=== PATIENT | female | born 1950 | race Caucasian/White ===

== ENCOUNTER → 2017-12-24 | Outpatient (CLI) | payer MEDICARE, BC ==
--- NOTE | 2017-12-24 10:23 | US ---
EXAMINATION TYPE: US abdomen complete DATE OF EXAM: 12/24/2017 COMPARISON: NONE CLINICAL HISTORY: RT Upper Quad Pain R10.11. Pt states chest pain, pt states known "sluggish" gallbla dder EXAM MEASUREMENTS: Liver Length: 16.8 cm Gallbladder Wall: 0.2 cm CBD: 0.5 cm Spleen: 11.2 cm Right Kidney: 9.5 x 3.4 x 4.3 cm Left Kidney: 9.5 x 4.9 x 4.3 cm Larger pt body habitus Pancreas: wnl, tail obscured by overlying bowel gas Liver: Unremarkable hepatic echotexture. There is appropriate visualization of the portal triads and right hemidiaphragm. Gallbladder: wnl Evidence for sonographic Thurman's sign: No CBD: wnl Spleen: wnl Right Kidney: wnl, lower pole gassed out Left Kidney: wnl, lower pole gassed out Upper IVC: wnl Abd Aorta: wnl The liver is homogenous. The intrahepatic portion of the IVC and proximal abdominal aorta are within normal limits. There is no evidence of cholelithiasis. Common bile duct is unremarkable. The visu alized portions of the pancreas are homogenous. The spleen is unremarkable. Kidneys are symmetric a nd free of hydronephrosis. No renal lesions are seen. IMPRESSION: No sonographic evidence of cholelithiasis or acute cholecystitis. Given the patient's sym ptoms HIDA scan with CCK could be performed to evaluate for biliary dyskinesia or chronic cholecystit is.
== END | disposition home or self-care (01) ==
LOC: RADUSWWP 08:12
PROVIDERS: ATTEND Internal Medicine
DX: R10.11 Right upper quadrant pain (principal)
CPT/HCPCS: 76700

== ENCOUNTER → 2018-01-08 | Outpatient (CLI) | payer MEDICARE, BC ==
--- NOTE | 2018-01-08 15:41 | NM ---
Nuclear medicine hepatobiliary scan. HISTORY: Pain. DOSAGE: The patient received 8 ounces and sure plus and 5 mCi of Technetium 99m Choletec. FINDINGS: There is normal hepatic extraction. The gallbladder is seen by 55 minutes. There is bilia ry to bowel clearance by 20 minutes. Ejection fraction is 83%. IMPRESSION: 1. Ejection fraction of 83%. The gallbladder is somewhat delayed in appearance at 60 minutes which ca n be seen with cholecystitis correlate clinically.
== END | disposition home or self-care (01) ==
LOC: RADNMMAIN 12:47
PROVIDERS: ATTEND Internal Medicine
DX: R10.11 Right upper quadrant pain (principal)
CPT/HCPCS: 78226; A9537

== ENCOUNTER → 2025-02-10 | Outpatient (CLI) | payer MEDICARE, BC ==
--- NOTE | 2025-02-13 20:41 | MR ---
EXAMINATION TYPE: MR knee LT wo con DATE OF EXAM: 02/10/2025 9:11 PM COMPARISON: 02/05/2025.. CLINICAL INDICATION: Female, 74 years old with history of M25.562; PHH, left knee pain TECHNIQUE: Multi planar, multi sequence imaging was performed of the knee including: Triplane proton density fat-saturated images and T1-weighted imaging. No Gadolinium was given. IV Contrast: mL (none if empty) FINDINGS: Medial meniscus: Intact no displaced tear. Medial femorotibial cartilage: areas of severe cartilage loss near full-thickness. Medial collateral ligament: Intact Lateral meniscus: Free edge tearing of the meniscal body no displaced tear. Lateral femorotibial cartilage: Moderate cartilage loss. Lateral collateral ligament complex: Intact Patellofemoral alignment: Normal Patellofemoral cartilage: Full-thickness cartilage loss with subchondral bony edema involving the medial and lateral patellar facet. Extensor mechanism: Intact. Joint/bursal fluid: Moderate joint effusion. Muscles/tendons: There is high T2 cystic change within the semimembranosus complex. Near its insertio n on the tibia The patellar tendon, quadriceps tendon, IT band, pes anserinus tendons, semimembranosu s tendon, popliteus tendon, and biceps femoris tendon are all within normal limits. Bone marrow: Subchondral bony edema involving the lateral patellar facet. Bony edema involving th e lateral femoral condyle possibly with osteochondral defect series 701 image 12. Bony edema within t he medial tibial plateau. There is also high signal within the distal semimembranosus tendon as it cr osses near the joint series 801 image 23 Anterior cruciate ligament: Intact. Posterior cruciate ligament: Intact. Soft tissues: Unremarkable. IMPRESSION: 1. Osteochondral defect of the patellofemoral femoral condyle with subchondral bony edema noted. 2. The ACL, MCL, PCL, LCL are intact. 3. Moderate joint effusion with severe degeneration changes of the medial knee and patellofemoral beatriz int. 4. Partial tear of the semimembranosus complex near its insertion onto the tibia with cystic changes present. Few strands of tendon remain present. Correlate clinically. [facility], , 02/13/2025 8:39 PM
== END | disposition home or self-care (01) ==
LOC: RADMRIMAIN 20:15
PROVIDERS: ATTEND Orthopaedic Surgery
DX: S76.312A Strain of muscle, fascia and tendon of the posterior muscle group at thigh level, left thigh, initial encounter (principal); M25.462 Effusion, left knee